=== PATIENT | female | born 1995 | race Two or more races ===

== ENCOUNTER 2020-07-20 21:36 | Emergency (ER) | payer OTHER ==
[~2020-07-20] VITALS: Ht 167.6 cm; Wt 83.9 kg
[2020-07-20 21:40] VITALS: BP 134/89
--- NOTE | 2020-07-20 21:40 | NUR ---
ED Nurse Note: Patient brought into ED by BEATRIZ RA 27 and [employer] for alcohol intoxication. Per BEATRIZ, patient was found on the street and patient had called 911 herself stating she wanted to . BEATRIZ notes patient admitted to drinking vodka tonight. Upon ED arrival, patient is yelling and screaming foul language at staff. Patient can follow some commands, but is not being fully cooperative at this time. She is aaox3, breathing is normal and unlabored. BAND placed patient on 5150 psychiatric hold for danger to self due to patient behavior and calling 911 stating she wanted to harm herself. According to 5150 psych hold, SHAD noted patient's plan was to drown in the ocean or use a gun to shoot herself. Upon bucket pusher, patient denies wanting to harm herself or others. Patient is able to speak in full sentences, but is rambling random words. Patient changed into psych gown and all belongings taken from patient. RN bedside monitoring with all safety measures in place.
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
--- NOTE | 2020-07-20 22:06 | NUR ---
Belongings in locker #2
[2020-07-20 22:15] LABS: APPEARANCE,URINE CLEAR; BILIRUBIN, URINE NEGATIVE (NEGATIVE); COLOR,URINE PALE YELLOW; GLUCOSE, URINE (UA) NEGATIVE (NEGATIVE); KETONES,URINE NEGATIVE (NEGATIVE); LEUKOCYTE ESTERASE ,URINE 1+ (NEGATIVE); NITRITE,URINE NEGATIVE (NEGATIVE); PH,URINE 6.5 (4.5-8.0); PROTEIN,URINE NEGATIVE (NEGATIVE); UROBILINOGEN,URINE NORMAL MG/DL (0.0-1.0)
[2020-07-20 22:19] LABS: BASOPHILS % (AUTO) 1.1 % (0.0-2.0); EOSINOPHILS % (AUTO) 1.6 % (0.0-3.0); HEMATOCRIT 42.3 % (37.0-47.0); HEMOGLOBIN 14.1 G/DL (12.0-16.0); LYMPHOCYTES % (AUTO) 29.4 % (20.0-45.0); MEAN CORPUSCULAR VOLUME 86 FL (80-99); MONOCYTES % (AUTO) 4.5 % (1.0-10.0); NEUTROPHILS % (AUTO) 63.4 % (45.0-75.0); PLATELET COUNT 368 K/UL (150-450); RED BLOOD COUNT 4.93 M/UL (4.20-5.40); RED CELL DISTRIBUTION WIDTH 12.2 % (11.6-14.8); WHITE BLOOD COUNT 11.9 K/UL (4.8-10.8)
[2020-07-20 22:22] LABS: ANION GAP 14 mmol/L (5-15); BLOOD UREA NITROGEN 7 mg/dL (7-18); CALCIUM 9.3 MG/DL (8.5-10.1); CARBON DIOXIDE 24 MMOL/L (21-32); CHLORIDE 104 MMOL/L (98-107); CREATININE 0.7 MG/DL (0.55-1.30); POTASSIUM 3.2 MMOL/L (3.5-5.1); SODIUM 142 MMOL/L (136-145)
[2020-07-20 22:27] LABS: ALANINE AMINOTRANSFERASE 32 U/L (12-78); ALBUMIN 4.4 G/DL (3.4-5.0); ALKALINE PHOSPHATASE 82 U/L (46-116); ASPARTATE AMINO TRANSFERASE 18 U/L (15-37); BILIRUBIN,TOTAL 0.1 MG/DL (0.2-1.0)
--- NOTE | 2020-07-20 23:00 | NUR ---
ED Nurse Note: Patient provided with oral hydration, tolerated well. Patient is still restless and becomes agitated with staff. Will continue to monitor.
[2020-07-20] MEDS ORDERED: Haloperidol 5mg/ml Inj ONE (23:28)
[2020-07-20] MEDS ORDERED: LORazepam Inj 2mg/ml 1ml ONE (23:28)
[2020-07-20] MEDS ORDERED: LORazepam Inj 2mg/ml 1ml IM ONE (23:30)
[2020-07-20] MEDS ORDERED: Haloperidol 5mg/ml Inj IM ONE (23:30)
[2020-07-21] VITALS (7 sets, daily range): BP systolic 114–133; BP diastolic 73–88
[2020-07-21] MEDS ORDERED: DiphenhydrAMINE 50mg/ml Inj IM ONE
--- NOTE | 2020-07-21 00:30 | NUR ---
ED Nurse Note: Patient is sleeping and appears comfortable. Patient is in no acute distress at this time. RN monitoring patient.
--- NOTE | 2020-07-21 02:30 | NUR ---
ED Nurse Note: Patient appears more calm at this time. NAD, will continue to monitor. No change in condition. Patient provided with water and blanket.
--- NOTE | 2020-07-21 04:45 | NUR ---
ED Nurse Note: Patient is in bed and appears to be sleeping. She is breathing normal and unlabored. NAD. RN bedside with safety measures in place. Will continue to monitor.
--- NOTE | 2020-07-21 06:10 | NUR ---
ED Nurse Note: Repeat ISAIAH drawn and sent to lab. Patient woke up upon blood draw. She is cooperative at this time and not yelling at staff. RN continuing to monitor patient with safety measures in place.
--- NOTE | 2020-07-21 06:35 | NUR ---
ED Nurse Note: Patient ambulated to restroom with steady gait and RN supervision with no complicaiton. Patient remains calm at this time. Patient provided with warm blankets for comfort.
--- NOTE | 2020-07-21 06:57 | NUR ---
HAND-OFF: Report given to DANIA Suarez.
--- NOTE | 2020-07-21 07:30 | NUR ---
ED Nurse Note: left AC 20 g inserted and fluids running. Will redraw serum alcohol around 0830
--- NOTE | 2020-07-21 08:02 | NUR ---
ED Nurse Note: pt does not want breakfast tray this morning.
--- NOTE | 2020-07-21 09:08 | NUR ---
ED Nurse Note: blood sent to lab
--- NOTE | 2020-07-21 15:00 | NUR ---
SPOKE TO JENNIE AT [facility] INTAKE INSTRUCTED TO CALL BACK AT 1700
--- NOTE | 2020-07-21 18:37 | NUR ---
ED Nurse Note: pt provided with dinner tray
--- NOTE | 2020-07-21 20:03 | NUR ---
ED Nurse Note: [id number]
--- NOTE | 2020-07-21 21:39 | NUR ---
ED Nurse Note: [facility] ambulance @ bedside. Report given.
--- NOTE | 2020-07-21 21:45 | NUR ---
ED Nurse Note: Pt cleared by health care Provider for discharge. packet given to ambulance personnel. All medical deviecs such as ID band removed. Respirations even and unlabored on room air. Vitals stable as documented. Pt is AAO x4, ambulatory and left with all personal belongings from locker 2. Pt in stable condition, en route to [facility].
== END 2020-07-21 21:45 ==
LOC: EDBD 21:36 → EMR 22:08
DX: R45.851 Suicidal ideations (principal); F10.129 Alcohol abuse with intoxication, unspecified; Y90.8 Blood alcohol level of 240 mg/100 ml or more; Z88.6 Allergy status to analgesic agent
CPT/HCPCS: 36415; 80053; 80307; 81003; 81025; 85025; 96360; 96372; G0480; G0481; J1200; J1630; J7030; U0002; Z7502; 99285; J8499